=== PATIENT | female | born 1980 | race Caucasian/White ===

== ENCOUNTER 2017-05-04 14:48 | Emergency (ER) | payer MEDICAID ==
--- NOTE | 2017-05-04 15:20 | EDM.PDOC ---
ED HPI GENERAL MEDICAL PROBLEM - General Chief Complaint: Drug or Alcohol Abuse Stated Complaint: REQUEST FOR MEDICAL CLEARANCE TO PROCEED TO [facility] Time Seen by Provider: 05/04/17 14:57 Source of Information: Reports: Patient History Limitations: Reports: No Limitations - History of Present Illness INITIAL COMMENTS - FREE TEXT/NARRATIVE: PATIENT IS A 37-YEAR-OLD FEMALE WHO PRESENTS TO THE EMERGENCY DEPARTMENT TODAY REQUESTING MEDICAL CLEARANCE TO PROCEED TO [facility] FOR ALCOHOL ABUSE. PATIENT STATES HER LAST DRINK WAS 20 MINUTES AGO BUT IS SEEKING PROFESSIONAL HELP. HAS LONG HISTORY OF ETOH ABUSE, BUT DENIES DRUG USE. SHE DENIES ANY MEDICAL PROBLEMS, CHEST PAIN, SHORTNESS OF BREATH, NAUSEA, VOMITING, DIARRHEA, ABDOMINAL PAIN, OR SUSPECTED . Duration: Chronic Improves with: Reports: None Worsens with: Reports: None Associated Symptoms: Reports: No Other Symptoms - Related Data Allergies Allergy/AdvReac Type Severity Reaction Status Date / Time No Known Allergies Allergy Verified 05/04/17 15:03 Home Meds: Home Meds . [No Known Home Meds] 05/04/17 [History] ED ROS GENERAL - Review of Systems Review Of Systems: ROS reveals no pertinent complaints other than HPI. Constitutional: Reports: No Symptoms HEENT: Reports: No Symptoms Respiratory: Reports: No Symptoms Cardiovascular: Reports: No Symptoms Endocrine: Reports: No Symptoms GI/Abdominal: Reports: No Symptoms : Reports: No Symptoms Musculoskeletal: Reports: No Symptoms Skin: Reports: No Symptoms Neurological: Reports: No Symptoms Psychiatric: Reports: No Symptoms Hematologic/Lymphatic: Reports: No Symptoms Immunologic: Reports: No Symptoms ED EXAM, GENERAL - Physical Exam Exam: See Below Exam Limited By: No Limitations General Appearance: Alert, WD/WN, No Apparent Distress Eye Exam: Bilateral Eye: Normal Inspection Nose: Normal Inspection, Normal Mucosa, No Blood Throat/Mouth: Normal Inspection, Normal Oropharynx, No Airway Compromise Head: Atraumatic, Normocephalic Neck: Normal Inspection, Supple Respiratory/Chest: No Respiratory Distress, Lungs Clear, Normal Breath Sounds, No Accessory Muscle Use, Chest Non-Tender Cardiovascular: Regular Rate, Rhythm, Diastolic Murmur GI/Abdominal: Normal Bowel Sounds, Soft, Non-Tender, No Organomegaly, No Mass Back Exam: Normal Inspection. No: CVA Tenderness (L), CVA Tenderness (R) Extremities: Normal Inspection, No Pedal Edema Neurological: Alert, Oriented, CN II-XII Intact, Normal Cognition, No Motor/ Sensory Deficits Psychiatric: Normal Affect, Normal Mood Skin Exam: Warm, Dry, Intact, Normal Color, No Rash Lymphatic: No Adenopathy Course - Vital Signs Last Recorded V/S: Last Vital Signs Temp 96.7 F 05/04/17 15:04 Pulse 96 05/04/17 15:04 Resp 20 05/04/17 15:04 BP 133/79 05/04/17 15:04 Pulse Ox 96 05/04/17 15:04 - Orders/Labs/Meds Orders: Active Orders 24 hr Category Date Time Status BASIC METABOLIC PANEL,BMP [CHEM] Stat Lab 05/04/17 15:11 Ordered CBC WITH AUTO DIFF [HEME] Stat Lab 05/04/17 15:11 Ordered HCG QUANTITATIVE,SERUM [CHEM] Stat Lab 05/04/17 15:13 Ordered UA W/MICROSCOPIC [URIN] Stat Lab 05/04/17 15:11 Uncollected - Re-Assessments/Exams Free Text/Narrative Re-Assessment/Exam: 05/04/17 15:48 Patient is afebrile, nontoxic appearing. Vital signs stable. Patient will proceed to [facility] for alcohol abuse evaluation. Free Text/Narrative Re-Assessment/Exam: 05/04/17 15:52 Patient is medically cleared for alcohol abuse facility potential admission Departure - Departure Time of Disposition: 15:52 Disposition: Home, Self-Care 01 Condition: Good Clinical Impression: Alcohol abuse, Medical clearance for psychiatric admission - Discharge Information Instructions: Alcohol Use Disorder, Finding Treatment for Addiction Referrals: Renuka Rodriguez PA-C [Primary Care Provider] - Additional Instructions: Proceed to [facility] as discussed. - My Orders Last 24 Hours: My Active Orders 05/04/17 15:11 BASIC METABOLIC PANEL,BMP [CHEM] Stat CBC WITH AUTO DIFF [HEME] Stat UA W/MICROSCOPIC [URIN] Stat 05/04/17 15:13 HCG QUANTITATIVE,SERUM [CHEM] Stat - Assessment/Plan Last 24 Hours: My Active Orders 05/04/17 15:11 BASIC METABOLIC PANEL,BMP [CHEM] Stat CBC WITH AUTO DIFF [HEME] Stat UA W/MICROSCOPIC [URIN] Stat 05/04/17 15:13 HCG QUANTITATIVE,SERUM [CHEM] Stat Assessment:: Alcohol abuse Plan: Patient will proceed to [facility] for alcohol abuse.
[2017-05-04 15:50] LABS: CHLORIDE,CL 106 mmol/L (98-115); SODIUM,NA 142 mmol/L (136-145)
== END 2017-05-04 16:00 | disposition home or self-care (01) ==
LOC: KA.ED 14:48
DX: F10.10 Alcohol abuse, uncomplicated (principal); Z04.6 Encounter for general psychiatric examination, requested by authority
CPT/HCPCS: 36415; 80048; 80305; 81001; 84702; 85025; 99283; G0480

== ENCOUNTER 2018-01-20 17:31 | Emergency (ER) | payer MEDICAID ==
[2018-01-20] MEDS ORDERED: Ketorolac 60 MG/2 ML SDV IM ONE (17:55)
--- NOTE | 2018-01-20 18:14 | EDM.PDOC ---
ED HPI GENERAL MEDICAL PROBLEM - General Chief Complaint: Back Pain or Injury Stated Complaint: BACK PAIN Time Seen by Provider: 01/20/18 17:46 Source of Information: Reports: Patient History Limitations: Reports: No Limitations - History of Present Illness INITIAL COMMENTS - FREE TEXT/NARRATIVE: Patient is a 37-year-old female who presents to the emergency department this afternoon with a complaint of low back pain. Patient states that she does a fair amount of light lifting at work and has intermittent back pain. This is an exacerbation of a chronic condition. Symptoms are worse today, so she decided to present to the emergency room. Patient denies specific trauma, saddle anesthesia, urinary or bowel incontinence, fever, abdominal pain, nausea , vomiting, diarrhea, chest pain, or shortness of breath. Onset: Gradual Duration: Chronic Location: Reports: Back Quality: Reports: Ache, Sharp Severity: Mild Improves with: Reports: None Worsens with: Reports: Movement Context: Reports: Lifting Associated Symptoms: Reports: No Other Symptoms Treatments MANAGER UI: Reports: NSAIDS, Other (see below) Other Treatments MANAGER UI: heat Right Hip Pain Score (Numeric/FACES): 8 - Related Data Allergies Allergy/AdvReac Type Severity Reaction Status Date / Time atomoxetine [From Strattera] Allergy Rash Verified 01/20/18 17:45 Home Meds: Home Meds . [No Known Home Meds] 05/04/17 [History] Past Medical History HEENT History: Reports: Impaired Vision Cardiovascular History: Reports: Heart Murmur, Other (See Below) Other Cardiovascular History: since childhood innocent [employer] History: Reports: Psychiatric History: Reports: Other (See Below) Other Psychiatric History: ETOH abuse - Infectious Disease History Infectious Disease History: Reports: Chicken Pox Social & Family History - Family History Family Medical History: Noncontributory - Tobacco Use Smoking Status *Q: Current Every Day Smoker Years of Tobacco use: 22 Packs/Tins Daily: 1 - Caffeine Use Caffeine Use: Reports: Coffee, Soda, Tea - Alcohol Use Days Per Week of Alcohol Use: 4 Number of Drinks Per Day: 5 Total Drinks Per Week: 20 - Recreational Drug Use Recreational Drug Use: No ED ROS GENERAL - Review of Systems Review Of Systems: ROS reveals no pertinent complaints other than HPI. Constitutional: Reports: No Symptoms HEENT: Reports: No Symptoms Respiratory: Reports: No Symptoms Cardiovascular: Reports: No Symptoms Endocrine: Reports: No Symptoms GI/Abdominal: Reports: No Symptoms : Reports: Frequency Musculoskeletal: Reports: Back Pain Skin: Reports: No Symptoms Neurological: Reports: No Symptoms Psychiatric: Reports: No Symptoms Hematologic/Lymphatic: Reports: No Symptoms Immunologic: Reports: No Symptoms ED EXAM,LOWER BACK PAIN/INJURY - Physical Exam Exam: See Below Exam Limited By: No Limitations General Appearance: Alert, WD/WN, No Apparent Distress Throat/Mouth: Normal Inspection, Normal Oropharynx, No Airway Compromise Head: Atraumatic, Normocephalic Neck: Normal Inspection, Supple, Non-Tender Respiratory/Chest: No Respiratory Distress, Lungs Clear, Normal Breath Sounds, No Accessory Muscle Use, Chest Non-Tender Cardiovascular: Normal Peripheral Pulses, Regular Rate, Rhythm, No Murmur GI/Abdominal: Normal Bowel Sounds, Soft, Non-Tender, No Organomegaly, No Distention, No Abnormal Bruit, No Mass Back Exam: Paraspinal Tenderness. No: CVA Tenderness (L), CVA Tenderness (R) Extremities: Normal Inspection, Normal Range of Motion, Non-Tender, No Pedal Edema, Normal Capillary Refill Neurological: Alert, Normal Mood/Affect, Normal Dorsiflexion, Normal Plantar Flexion, Oriented x 3 Psychiatric: Normal Affect, Normal Mood Skin Exam: Warm, Dry, Intact, Normal Color, No Rash Course - Vital Signs Last Recorded V/S: Last Vital Signs Temp 95.9 F 01/20/18 17:39 Pulse 91 01/20/18 17:39 Resp 20 01/20/18 17:39 BP 150/81 H 01/20/18 17:39 Pulse Ox 97 01/20/18 17:39 - Orders/Labs/Meds Orders: Active Orders 24 hr Category Date Time Status UA W/MICROSCOPIC [URIN] Stat Lab 01/20/18 17:55 Ordered Labs: Laboratory Tests 01/20/18 Range/Units 18:05 Specimen Type Urincc Urine Color Light yellow (YELLOW) Urine Appearance Clear (CLEAR) Urine pH 5.5 (5.0-9.0) Ur Specific Drury <= 1.005 (1.005-1.030) Urine Protein Negative (NEGATIVE) mg/dL Urine Glucose (UA) Negative (NEGATIVE) mg/dL Urine Ketones Negative (NEGATIVE) mg/dL Urine Occult Blood Negative (NEGATIVE) Urine Nitrite Negative (NEGATIVE) Urine Bilirubin Negative (NEGATIVE) Urine Urobilinogen 0.2 (0.2-1.0) E.U./dL Ur Leukocyte Esterase Negative (NEGATIVE) Urine RBC 0-5 /HPF Urine WBC 0-5 /HPF Ur Epithelial Cells Few /LPF Urine Bacteria Rare (NONE TO FEW) /HPF Meds: Medications Discontinued Medications Generic Name Dose Route Start Last Admin Trade Name Mikey PRN Reason Stop Dose Admin Ketorolac Tromethamine 60 mg 01/20/18 17:55 01/20/18 18:00 Toradol IM 01/20/18 17:56 60 mg ONETIME ONE Administration - Re-Assessments/Exams Free Text/Narrative Re-Assessment/Exam: 01/20/18 18:47 Patient afebrile, nontoxic appearing, vital signs stable. Patient has had some relief with the Toradol. Urinalysis is negative. Patient is requesting narcotics. Request was denied based on patient history. 01/20/18 18:50 Departure - Departure Time of Disposition: 18:48 Disposition: Home, Self-Care 01 Condition: Fair Clinical Impression: History of ETOH abuse, Chronic lower back pain - Discharge Information Instructions: Back Injury Prevention, [id number], Musculoskeletal Pain, Back Pain, Adult, [id number] Referrals: Renuka Rodriguez PA-C [Primary Care Provider] - Forms: ED Department Discharge Additional Instructions: Follow-up with primary care physician next 1-2 days. Return to the emergency department sooner if symptoms continue or worsen. - My Orders Last 24 Hours: My Active Orders 01/20/18 17:55 UA W/MICROSCOPIC [URIN] Stat - Assessment/Plan Last 24 Hours: My Active Orders 01/20/18 17:55 UA W/MICROSCOPIC [URIN] Stat Assessment:: Chronic low back pain
== END 2018-01-20 18:55 | disposition home or self-care (01) ==
LOC: KA.ED 17:31
DX: G89.29 Other chronic pain (principal); M54.5 Low back pain; F17.210 Nicotine dependence, cigarettes, uncomplicated; Z88.1 Allergy status to other antibiotic agents; Z86.59 Personal history of other mental and behavioral disorders
CPT/HCPCS: 81001; 96372; 99283; J1885